=== PATIENT | male | born 1955 | race African-American/Black ===

== ENCOUNTER 2023-04-21 18:52 | Emergency (ER) | payer OTHER, SELFPAY ==
[2023-04-21 18:54] VITALS: BP 166/86
--- NOTE | 2023-04-21 19:17 | ED.GENMED ---
History of Present Illness
General
Chief Complaint: Musculo-Skeletal Complaint
Source: patient
Exam Limitations: none
Time Seen by Provider: 04/21/23 19:06
Travel History
Have you had any contact with someone who has COVID-19?: No
Do you have any symptoms of coronavirus? Fever > 100 degrees, chills, cough, shortness of breath, sore throat, loss of taste or smell, muscle aches, or headache?: No
History of Present Illness
History of Present Illness:
67-year-old male started with left scapular leg pain with radiation of tingling and numbness to the left arm 4 to 5 days ago. Essentially constant. No true chest pain or shortness of breath. No weakness. No new neurologic symptoms. Patient has
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 He has some residual double vision from this. No other symptoms related to the his presenting symptoms today.
Past History
Past History
ED Past Medical History: CVA, HTN, Hypercholesterolemia and Other (Prostate cancer, hyperlipidemia)
ED Past Surgical History: Other (Had a coiling of a aneurysm in March 2018)
Social History
Tobacco: Non-smoker
Alcohol: Occasional
Drug: None
Personal:
Living: with family
Employment: Employed
Family History
Family History: Other (Mother with a stroke brother with hypertension and kidney)
Review of Systems
Review of Systems
All Other Systems: Not applicable
Respiratory: Reports no symptoms
Cardiac: Reports no symptoms
ABD/GI: Reports no symptoms
Phy Exam
Physical Exam
Physical Exam:
GENERAL: Alert and oriented in no apparent distress. Speech normal
EYE: Orbits normal. Extraocular muscles intact. Discharge
NECK: Supple, no carotid bruit
ENT: Pharynx without erythema
CARDIAC: Regular rate and rhythm without any obvious murmurs.
LUNGS: Clear breath sounds,normal
ABDOMEN: Soft, without focal tenderness or distention
NEUROLOGICAL: Alert and oriented , speech normal. Cranial nerves II through XII intact. [id number] normal. [id number]-uw-[id number] normal. Risk Control Consultant normal. Interosseous intact. Flexion extension at the wrist normal. Biceps intact. Triceps intact.
Subjective decrease sensation to the left hand mostly second third and fourth digit more on the palmar side. No decree sensation proximal to the wrist. Good distal pulses and color
SKIN: Warm and dry, no rash or lesion, no discoloration, skin intact.
MUSCULOSKELETAL: No edema,no deformity.Good color
PSYCH: Normal and appropriate interaction.
Course
Orders/Labs/Results
Orders:
Orders
04/21/23 18:59
Electrocardiogram (*1) Urgent
Reason for Study: Other
Other Reason for Exam: left neck, left arm pain
EKG- Treatment ONCE
04/21/23 19:16
CT Cervical Spine W/o Iv Contr Urgent
Comment:
Reason For Exam: Upper back pain with radiating symptoms to the lef
CT Chest Angio W/wo Iv Contras Urgent
Comment:
Reason For Exam: Upper/mid back pain radiation to arm
IV Insert/Care/Rem.- Treatment PRN
04/21/23 19:33
Basic Metabolic Panel Urgent
Complete Blood Count/With Diff Urgent
Troponin I Urgent
Abnormal Lab Results
04/21/23
19:33
RBC 4.10 L 10^6/uL
(4.70-6.10)
Hgb 11.8 L g/dL
(13.0-18.0)
Hct 34.2 L %
(39.0-52.0)
MPV 12.0 H fL
(7.4-10.4)
Absolute Lymphs (auto) 1.0 L 10^3/uL
(1.2-3.4)
Potassium 3.3 L mmol/L
(3.5-5.1)
Carbon Dioxide 32 H mmol/L
(22-30)
Glucose 156 H mg/dl
(70-99)
04/21/23 19:33
04/21/23 19:33
Vital Signs
Initial and Last Documented VS:
Initial Vital Signs
Temp Pulse Resp BP Pulse Ox
98.3 F 76 18 166/86 97
04/21/23 18:54 04/21/23 18:54 04/21/23 18:54 04/21/23 18:54 04/21/23 18:54
Last Documented Vital Signs
Temp Pulse Resp BP Pulse Ox
98.3 F 65 15 146/85 93
04/21/23 18:54 04/21/23 21:15 04/21/23 21:15 04/21/23 21:00 04/21/23 21:15
MDM/Problems Addressed
Differential Diagnosis Includes:
Symptoms most consistent with a radiculopathy. Subjectively has sensory nerve symptoms to the left hand. However with nontraumatic scapular pain cardiac and dissection will be evaluated.
*Radiology
Radiology exam reviewed: radiology read reviewed (CT scan shows degenerative changes C5-C6. No dissection)
*Pulse Oximetry
Patient hypoxic: no
*EKG
Interpreted by ED Provider?: Yes
Interpretation: abnormal
Comparison EKG: no changes
Heart Rate: 70
Rate: normal
Rhythm: sinus
[place]: left axis deviation
Interval: normal interval
QRS Pattern: normal QRS
Ischemia: T-wave inversion (Laterally)
*Critical Care Note
Total Time (30-74mins, 75-104mins- exclusive of procedures): Not Applicable
Data Reviewed
Review of Other/Old Records Reveals: Labs, Records and Testing
Update Note
Update Note:
Patient's symptoms are consistent with a radiculopathy. Localized paresthesias to the hand. Not consistent with stroke. Not a primary cardiac issue. However patient does have a chronically abnormal EKG that does warrant cardiac follow-up.
ED Attending Note
-
Portions of this chart may have been created with voice recognition software.� Occasional wrong word or��sound alike� substitutions may have occurred due to the inherent limitations of voice recognition software.
Discharge Plan
Departure
Patient Disposition: Home (Routine Discharge)
Date of Disposition: 04/21/23
Time of Disposition: 22:26
Patient with high blood pressure during this ER visit?: Yes
Discharge Problem:
Radiculopathy left arm
Instructions: Radiculopathy (DC), BLOOD PRESSURE
Prescriptions:
No Action
febuxostat 40 MG tablet
40 mg PO DAILY 0RF
acetaminophen 325 MG tablet
650 mg PO Q6HPRN PRN (Reason: pain mild) 0RF
nifedipine 60 MG tablet extended release
60 mg PO DAILY 30 Days 0RF
losartan 100 MG tablet
100 mg PO DAILY 30 Days 0RF
atorvastatin 40 MG tablet
40 mg PO QPM 30 Days 0RF
polyethylene glycol 3350 238 GM powder
17 gm PO DAILY PRN (Reason: constipation) 30 Days 0RF
Referrals:
Giana Arguello CRNP [Family Provider] - Follow up in 2-[address] DO [Active] - Follow up in 5-7 days
Kalen Dominguez MD [Active] - Follow up in 5-7 days
Activity Restrictions/Additional Instructions:
Follow-up closely with your primary physician.
The next name is the orthopedist to follow-up with for your radiculopathy
The last name is the car rental service attendant that I think you should follow-up for your chronically abnormal EKG.
Interventions
Interventions:
*Risk Screen - Suicide Last Done: 04/21/23 18:54
*General Assessment Last Done: 04/21/23 18:54
*Neglect/Abuse Screening Last Done: 04/21/23 18:54
ED- Fall Risk Assessment Last Done: 04/21/23 20:21
ED-Musculoskeletal Assessment Last Done: 04/21/23 20:21
[2023-04-21 19:21] VITALS: BP 153/92
[2023-04-21 19:40] LABS: % Basophils 0.6 % (0-2); % Eosinophils 3.9 % (0-6); % Immature Granulocytes 0.4 % (0-0.5); % Lymphocytes 20.5 % (20.5-51.1); % Monocytes 8.5 % (1.7-9.3); % Neutrophils 66.1 % (42.2-75.2); Absolute Eosinophils 0.2 10^3/uL (0-0.7); Absolute Monocytes 0.4 10^3/uL (0.1-0.6); Absolute Neutrophils 3.2 10^3/uL (1.4-6.5); Hematocrit 34.2 % (39.0-52.0); Hemoglobin 11.8 g/dL (13.0-18.0); Mean Corp Hgb Conc. 34.5 g/dL (33.0-37.0); Mean Corpuscular Hgb 28.8 pg (27.0-31.0); Mean Corpuscular Volume 83.4 fL (80.0-94.0); Nucleated Red Blood Cells % 0 % (-); Platelet Count 130 10^3/uL (130-400); Red Cell Dist. Width 14.4 % (11.5-14.5); White Blood Cell Count 4.8 10^3/uL (4.8-10.8)
[2023-04-21 19:57] LABS: Blood Urea Nitrogen 20 mg/dl (9-20); Calcium 9.8 mg/dl (8.4-10.2); Carbon Dioxide 32 mmol/L (22-30); Chloride 101 mmol/L (98-107); Glucose 156 mg/dl (70-99); Potassium 3.3 mmol/L (3.5-5.1); Sodium 137 mmol/L (135-145); eGFR > 60.00
[2023-04-21 20:02] LABS: Troponin I < 0.012 ng/ml
[2023-04-21 20:18] VITALS: BP 139/92
[2023-04-21 21:00] VITALS: BP 146/85
== END 2023-04-21 22:36 | disposition home or self-care (01) ==
LOC: EMR 18:52
PROVIDERS: EMERGENCY PHYSICIAN Emergency Medicine; FAMILY PHYSICIAN Nurse Practitioner
DX: M54.10 Radiculopathy, site unspecified (principal); M79.602 Pain in left arm; I10 Essential (primary) hypertension; Z86.73 Personal history of transient ischemic attack (TIA), and cerebral infarction without residual deficits
CPT/HCPCS: 99285; 71275; 72125; 80048; 84484; 85025; 93005; Q9967

== ENCOUNTER → 2023-05-03 09:32 | Outpatient (REF) | payer OTHER, SELFPAY | LOC: HWRAD 09:32 | PROVIDERS: ATTENDING PHYSICIAN Nurse Practitioner | DX: Z85.46 Personal history of malignant neoplasm of prostate (principal) | CPT/HCPCS: 74177; Q9967 ==

== ENCOUNTER → 2023-05-19 07:15 | Outpatient (REF) | payer OTHER, SELFPAY | LOC: DHCBC/DCA 07:15 | PROVIDERS: ATTENDING PHYSICIAN Internal Medicine Cardiovascular Disease; FAMILY PHYSICIAN Nurse Practitioner | DX: R07.9 Chest pain, unspecified (principal); R94.31 Abnormal electrocardiogram [ECG] [EKG] | CPT/HCPCS: 78452; 93017; A9500 ==

== ENCOUNTER → 2023-07-06 09:36 | Outpatient (REF) | payer OTHER, SELFPAY | LOC: RCS 09:36 | PROVIDERS: ATTENDING PHYSICIAN Internal Medicine Cardiovascular Disease; FAMILY PHYSICIAN Nurse Practitioner | DX: R07.9 Chest pain, unspecified (principal); R94.31 Abnormal electrocardiogram [ECG] [EKG] | CPT/HCPCS: 93306 ==

== ENCOUNTER 2023-09-15 23:32 | Emergency (ER) | payer OTHER, SELFPAY ==
[2023-09-15 23:40] VITALS: BP 159/90
[2023-09-16 00:10] VITALS: BP 168/97
--- NOTE | 2023-09-16 00:10 | ED.GENMED ---
History of Present Illness
General
Chief Complaint: Headache
Source: patient
Exam Limitations: none
Time Seen by Provider: 09/15/23 23:59
Nursing documentation reviewed up to this point in time: agreed with
History of Present Illness
History of Present Illness:
Pleasant 67-year-old male presents with headache. He states that this headache began around 4 PM. He states that the headache is left-sided and now has migrated to his left ear and eye. He reports no visual acuity changes. He did take Tylenol
shortly after the headache began without any relief. Patient is concerned because he had a stroke in 2019, and this headache feels similar. Denies fever, chills, neck pain, chest pain, or shortness of breath.
Vital signs are stable. Patient not hypoxic
Nursing note reviewed. I agree with nursing documentation up to this point in time.
Home Meds and allergies reviewed.
NUMBER AND COMPLEXITY OF PROBLEMS ADDRESSED AT THE ENCOUNTER
� Chronic conditions affecting care: CVA, aneurysm, hypertension, diabetes
� Acute Exacerbation and/or Progression of Chronic Illness: Acute headache
� Differential Diagnosis includes: Headache, CVA, TIA
AMOUNT AND/OR COMPLEXITY OF DATA TO BE REVIEWED AND ANALYZED
I performed an independent evaluation of the following and my interpretation is:
EKG:
CT:
X-rays:
Ultrasound:
Laboratory Studies:
Other:
Review of other/old records:
Clinical information was obtained by an independent historian:
Prescriptions/Medications Considered but not given:
Further testing considered but not performed:
RISK OF COMPLICATIONS AND/OR MORBIDITY OR MORTALITY OF PATIENT MANAGEMENT
Social determinants of health affecting care: Good Social Support
Discussion with other providers:
Escalation of care including admission/observation vs risk of discharge considered:
CRITICAL CARE NOTE:
Total Time (exclusive of procedures):
Update:
Past History
Past History
ED Past Medical History: CVA, HTN, Hypercholesterolemia and Other (Prostate cancer, hyperlipidemia)
ED Past Surgical History: Other (Had a coiling of a aneurysm in March 2018)
Social History
Tobacco: Non-smoker
Alcohol: Occasional
Drug: None
Personal:
Living: with family
Employment: Employed
Family History
Family History: Other (Mother with a stroke brother with hypertension and kidney)
Review of Systems
Review of Systems
Allergies reviewed?: Yes
All Other Systems: ROS reviewed and negative except as documented in HPI and ROS
Constitutional: Reports no symptoms
EENT: Reports no symptoms
Respiratory: Reports no symptoms
Cardiac: Reports no symptoms
ABD/GI: Reports no symptoms
: Reports no symptoms
Musculoskeletal: Reports no symptoms
Skin: Reports no symptoms
Neurological: Reports headache; Denies dizzy, weakness or numbness
Endocrine: Reports no symptoms
Hematologic/Lymphatic: Reports no symptoms
Psychiatric: Reports anxiety
Phy Exam
General Physical Exam
General Presentation: well appearing and no apparent distress
General Skin: warm and dry
General Habitus: normal
General Mental: alert
General Hydration: appears well hydrated
ENT Exam
ENT Exam: EOMI, pharynx normal, neck supple and normocephalic
Eye Exam
Eye Exam: PERRL, cornea clear and conjunctiva normal
Cardiovascular Exam
Cardiovascular Exam: regular rate/rhythm, no edema, no murmur and normal peripheral pulses
Pulmonary Exam
Pulmonary Exam: lungs clear, no respiratory distress, no rales, no crackles, no rhonchi, no stridor, no wheezing and no cough
Gastrointestinal Exam
Gastrointestinal Exam: normal bowel sounds, non tender, soft, no organomegaly, no pulsatile mass and non distended
Neurological Exam
Neurological Exam: alert, oriented x3, no motor deficits and speech normal
Musculoskeletal Exam
Musculoskeletal Exam: full ROM and no edema
Skin Exam
Skin Exam: normal color, warm/dry, no rash and no petechia
Psychiatric Exam
Psychiatric Exam: normal mood/affect
Scores
NIH Stroke Score
Level of Consciousness: 0 - Alert
LOC Questions: 0-Answers both correctly
LOC Commands: 0-Performs both correctly
Best Horizontal Gaze: 0-Normal
Visual Moe: 0=Normal, no visual loss
Facial Palsy: 0=Normal, symmetrical
Motor - Right Arm: 0=No drift 10 seconds
Motor - Left Arm: 0=No drift 10 seconds
Motor - Right Le-No drift 5 seconds
Motor - Left Le-No drift 5 seconds
Limb Ataxia: 0-Absent
Sensation: 0-Normal
Best Language: 0-No aphasia
Dysarthria: 0-Normal
Extinction and Inattention: 0-No abnormality
Total Score:: 0
Course
Orders/Labs/Results
Orders:
Orders
09/16/23 00:10
CT Head & Neck Angio W/wo IV Urgent
Comment:
Reason For Exam: Headache similar to previous CVA symptoms
Cardiac Monitoring- Treatment ONCE
09/16/23 00:11
Electrocardiogram (*1) Stat
Reason for Study: Other
Other Reason for Exam: neuro symptoms
EKG- Treatment ONCE
09/16/23 00:13
Complete Blood Count/With Diff Urgent
Comprehensive Metabolic Panel Urgent
Erythrocyte Sed Rate Urgent
PTT Urgent
Prothrombin Time Urgent
Troponin I Urgent
09/16/23 01:54
0.9% Sodium Chloride 1000 ml [Nss] 1,000 ml IV BOLUS
Dexamethasone Sod Phosphate [Decadron] 10 mg IV NOW STA
Diphenhydramine [Benadryl] 25 mg IV NOW STA
Metoclopramide [Reglan] 10 mg IV NOW STA
09/16/23 03:14
Ketorolac [Toradol] 30 mg IV NOW STA
Abnormal Lab Results
09/16/23
00:13
WBC 4.2 L 10^3/uL
(4.8-10.8)
RBC 4.15 L 10^6/uL
(4.70-6.10)
Hgb 12.0 L g/dL
(13.0-18.0)
Hct 34.6 L %
(39.0-52.0)
Plt Count 127 L 10^3/uL
(130-400)
MPV 11.6 H fL
(7.4-10.4)
Absolute Lymphs (auto) 1.0 L 10^3/uL
(1.2-3.4)
Monocytes % 9.5 H %
(1.7-9.3)
BUN 22 H mg/dl
(9-20)
Creatinine 2.0 H mg/dL
(0.7-1.3)
Glucose 120 H mg/dl
(70-99)
09/16/23 00:13
09/16/23 00:13
Vital Signs
Initial and Last Documented VS:
Initial Vital Signs
Temp Pulse Resp BP Pulse Ox
98.1 F 66 20 159/90 95
09/15/23 23:40 09/15/23 23:40 09/15/23 23:40 09/15/23 23:40 09/15/23 23:40
Last Documented Vital Signs
Temp Pulse Resp BP Pulse Ox
98.1 F 66 20 154/90 96
09/15/23 23:40 09/15/23 23:40 09/15/23 23:40 09/16/23 02:04 09/16/23 02:15
*Critical Care Note
Total Time (30-74mins, 75-104mins- exclusive of procedures): Not Applicable
Update Note
Update Note:
Patient feeling much better. He is actively ambulating around the room getting dressed. He walks with a brisk and steady gait. He is mentating appropriately. He states that his symptoms have completely resolved and he wishes to be discharged
home. He does have a neurosurgeon at [facility]. He will follow-up. Discussed return to ER instructions with patient.
ED Attending Note
-
Portions of this chart may have been created with voice recognition software.� Occasional wrong word or��sound alike� substitutions may have occurred due to the inherent limitations of voice recognition software.
Discharge Plan
Departure
Patient Disposition: Home (Routine Discharge)
Date of Disposition: 09/16/23
Time of Disposition: 04:36
Patient with high blood pressure during this ER visit?: Yes
Condition: Good
Discharge Problem:
Headache, HTN (hypertension)
Instructions: Headache, Adult (DC), BLOOD PRESSURE
Prescriptions:
No Action
febuxostat 40 MG tablet
40 mg PO DAILY 0RF
acetaminophen 325 MG tablet
650 mg PO Q6HPRN PRN (Reason: pain mild) 0RF
nifedipine 60 MG tablet extended release
60 mg PO DAILY 30 Days 0RF
losartan 100 MG tablet
100 mg PO DAILY 30 Days 0RF
atorvastatin 40 MG tablet
40 mg PO QPM 30 Days 0RF
polyethylene glycol 3350 238 GM powder
17 gm PO DAILY PRN (Reason: constipation) 30 Days 0RF
Referrals:
Giana Arguello CRNP [Family Provider] -
Activity Restrictions/Additional Instructions:
As discussed, please follow-up with your neurologist at [facility].
It was a pleasure meeting you and taking part in your care. We hope for your continued healing and wellness.
Please read discharge instructions in their entirety. However, they are for general education and may not describe your exact diagnosis at discharge. Information on your ER visit and medical conditions were discussed with you along with appropriate
follow up information...
If indicated, please take your medications as instructed and indicated on discharge paperwork.
Please schedule a follow up appointment as directed. Call to schedule an appointment
Please return to the emergency department with ANY change in, persisting, or worsening of symptoms. If any of your symptoms do not improve, or persist, or become more severe within 6-12 hours, please return to the emergency department for further
care.
Please return to the emergency department if you develop a headache, neck pain/stiffness, fever greater than 100.4F, chest pain, shortness of breath, persistent nausea, vomiting, slurred speech, difficulty walking, numbness/tingling, weakness, signs
of infection or any other symptoms that are worrisome to you.
If you have any questions or concerns please do not hesitate to call the Hospital at or E-mail me directly at [email or web address]
Interventions
Interventions:
*Risk Screen - Suicide Last Done: 09/15/23 23:40
*General Assessment Last Done: 09/15/23 23:40
*Neglect/Abuse Screening Last Done: 09/15/23 23:40
ED- Fall Risk Assessment Last Done: 09/15/23 23:40
*ED COVID-19 Vaccine History Last Done: 09/15/23 23:40
ED- Neurological Assessment Last Done: 09/16/23 00:11
Discharge Date and Time
Print Language: ALBANIAN
[2023-09-16 00:11] VITALS: BMI 36.2
--- NOTE | 2023-09-16 00:12 | EDRN ---
Dr. Stack at bedside, patient states this feels like stroke he had in the past, [facility] performed with a result of 0
[2023-09-16 00:33] LABS: INR 1.11; PT 14.3 Sec (11.4-14.6)
[2023-09-16 00:34] LABS: APTT 29.5 Sec (23.4-35.0)
[2023-09-16 00:36] LABS: ALT (SGPT) 49 U/L (0-50); AST (SGOT) 24 U/L (17-59); Albumin 4.1 g/dl (3.5-5.0); Alkaline Phosphatase 77 U/L (38-126); Blood Urea Nitrogen 22 mg/dl (9-20); Calcium 9.6 mg/dl (8.4-10.2); Carbon Dioxide 28 mmol/L (22-30); Chloride 105 mmol/L (98-107); Estimated Creatinine Clearance 49 ml/min; Glucose 120 mg/dl (70-99); Potassium 3.9 mmol/L (3.5-5.1); Sodium 138 mmol/L (135-145); Total Bilirubin 0.5 mg/dl (0.2-1.3); Total Protein 6.6 g/dl (6.3-8.2); eGFR 36.13
[2023-09-16 00:40] LABS: % Basophils 0.5 % (0-2); % Eosinophils 4.5 % (0-6); % Immature Granulocytes 0.2 % (0-0.5); % Lymphocytes 23.5 % (20.5-51.1); % Monocytes 9.5 % (1.7-9.3); % Neutrophils 61.8 % (42.2-75.2); Absolute Eosinophils 0.2 10^3/uL (0-0.7); Absolute Monocytes 0.4 10^3/uL (0.1-0.6); Absolute Neutrophils 2.6 10^3/uL (1.4-6.5); Hematocrit 34.6 % (39.0-52.0); Mean Corp Hgb Conc. 34.7 g/dL (33.0-37.0); Mean Corpuscular Hgb 28.9 pg (27.0-31.0); Mean Corpuscular Volume 83.4 fL (80.0-94.0); Mean Platelet Volume 11.6 fL (7.4-10.4); Nucleated Red Blood Cells % 0 % (-); Platelet Count 127 10^3/uL (130-400); Red Blood Cell Count 4.15 10^6/uL (4.70-6.10); Red Cell Dist. Width 13.6 % (11.5-14.5); White Blood Cell Count 4.2 10^3/uL (4.8-10.8)
[2023-09-16 00:47] LABS: Troponin I < 0.012 ng/ml
[2023-09-16 01:00] VITALS: BP 162/87
[2023-09-16 01:10] LABS: Erythrocyte Sed Rate 16 mm/hour (0-20)
[2023-09-16] MEDS: REGLAN 10 MG IV (01:58)
[2023-09-16] MEDS: BENADRYL 25 MG IV (01:58)
[2023-09-16] MEDS: NSS 1000 IV (01:58)
[2023-09-16] MEDS: DECADRON 10 MG IV (01:58)
[2023-09-16 02:04] VITALS: BP 154/90
[2023-09-16] MEDS: TORADOL 30 MG IV (03:21)
[2023-09-16 04:00] VITALS: BP 169/101
--- NOTE | 2023-09-16 04:30 | EDRN ---
Patient reported feeling better and ready to go home, Dr. Stack in to speak with patient and he will be discharged home.
== END 2023-09-16 04:49 | disposition home or self-care (01) ==
LOC: EMR 23:32
PROVIDERS: EMERGENCY PHYSICIAN Student in an Organized Health Care Education/Training Program; FAMILY PHYSICIAN Nurse Practitioner
DX: R51.9 Headache, unspecified (principal); I10 Essential (primary) hypertension
CPT/HCPCS: 99285; 96374; 96375 ×3; 96361; 70496; 70498; 80053; 84484; 85025; 85610; 85652; 85730; 93005; Q9967

== ENCOUNTER 2024-01-27 14:49 | Emergency (ER) | payer OTHER, SELFPAY ==
[2024-01-27 14:54] VITALS: BP 187/110
--- NOTE | 2024-01-27 15:42 | ED.GENMED ---
History of Present Illness
General
Chief Complaint: Headache
Source: patient
Exam Limitations: none
Time Seen by Provider: 01/27/24 15:22
Nursing documentation reviewed up to this point in time: agreed with
History of Present Illness
History of Present Illness:
68-year-old male with past medical history of stroke, aneurysm hypertension diabetes presents to the ER for evaluation. Patient reports he has had a headache off and on for the past 2 weeks and today woke up and had a severe headache. He did take
his blood pressure today and realized it was elevated 196/100 which was prompted him to come to the ER. He has been taking his blood pressure medication normally as scheduled in the morning. He denies any blurred vision nausea vomiting. He denies
any chest pain shortness of breath. He did take 3 Tylenol which did not relieve his symptoms he did drive himself to the ER.
He is on Eliquis for history of stroke denies any trauma. He has been only taking Eliquis once a day and was not aware he was supposed to take it twice a day. He found that out this today when his cardiology office told him.
Past History
Past History
ED Past Medical History: CVA, HTN, Hypercholesterolemia and Other (Prostate cancer, hyperlipidemia)
ED Past Surgical History: Other (Had a coiling of a aneurysm in March 2018)
Social History
Tobacco: Non-smoker
Alcohol: Occasional
Drug: None
Personal:
Living: with family
Employment: Employed
Family History
Family History: Other (Mother with a stroke brother with hypertension and kidney)
Review of Systems
Review of Systems
Allergies reviewed?: Yes
All Other Systems: ROS reviewed and negative except as documented in HPI and ROS
Constitutional: Reports no symptoms
EENT: Reports other (No visual changes)
Respiratory: Reports no symptoms; Denies trouble breathing
Cardiac: Reports no symptoms; Denies chest pain
ABD/GI: Reports no symptoms
Skin: Reports no symptoms
Neurological: Reports headache; Denies dizzy, weakness or numbness
Psychiatric: Reports no symptoms
Phy Exam
General Physical Exam
General Presentation: no apparent distress
General age: appears stated age
General Skin: warm and dry
General Habitus: normal
General Mental: alert
General Hydration: appears well hydrated
Eye Exam
Eye Exam: PERRL and EOMI
Eye Exam General: PERRL: bilateral and EOM intact: bilateral
Pupil Exam: Bilateral: round and reactive
Cardiovascular Exam
Cardiovascular Exam: normal peripheral pulses and bradycardia
Pulmonary Exam
Pulmonary Exam: lungs clear and no respiratory distress
Neurological Exam
Neurological Exam: alert and oriented x3
Fred[place]ick Coma Scale
Eye Opening: Spontaneous
Verbal Response: Oriented
Motor Response: Obeys Commands
GCS Total Score: 15
Musculoskeletal Exam
Musculoskeletal Exam: full ROM
Skin Exam
Skin Exam: normal color and warm/dry
Psychiatric Exam
Psychiatric Exam: normal mood/affect
Course
Orders/Labs/Results
Orders:
Orders
01/27/24 14:57
EKG [Electrocardiogram (*1)] Urgent
Reason for Study: Vertigo / Dizzy
EKG- Treatment ONCE
01/27/24 15:52
CT Head W/o Iv Contrast Urgent
Comment:
Reason For Exam: headache elevated bp
Cardiac Monitoring- Treatment ONCE
IV Insert/Care/Rem.- Treatment PRN
01/27/24 15:53
Electrocardiogram (*1) Stat
Reason for Study: Abdominal Pain
EKG- Treatment ONCE
01/27/24 16:14
Complete Blood Count/With Diff Urgent
Comprehensive Metabolic Panel Urgent
01/27/24 17:36
0.9% Sodium Chloride 1000 ml [Nss] 1,000 ml IV BOLUS
Prochlorperazine [Compazine] 10 mg IV NOW STA
01/27/24 18:19
Ketorolac [Toradol] 15 mg IV NOW STA
01/27/24 19:06
Ketorolac [Toradol] 15 mg .ROUTE .STK-MED ONE
Abnormal Lab Results
01/27/24
16:14
WBC 4.5 L 10^3/uL
(4.8-10.8)
RBC 4.43 L 10^6/uL
(4.70-6.10)
Hgb 12.7 L g/dL
(13.0-18.0)
Hct 38.4 L %
(39.0-52.0)
Plt Count 119 L 10^3/uL
(130-400)
MPV 11.8 H fL
(7.4-10.4)
Absolute Lymphs (auto) 1.1 L 10^3/uL
(1.2-3.4)
Glucose 104 H mg/dl
(70-99)
01/27/24 16:14
01/27/24 16:14
Vital Signs
Initial and Last Documented VS:
Initial Vital Signs
Temp Pulse Resp BP Pulse Ox
97.9 F 56 16 187/110 98
01/27/24 14:54 01/27/24 14:54 01/27/24 14:54 01/27/24 14:54 01/27/24 14:54
Last Documented Vital Signs
Temp Pulse Resp BP Pulse Ox
97.9 F 57 16 175/111 98
01/27/24 14:54 01/27/24 18:17 01/27/24 18:17 01/27/24 18:17 01/27/24 18:17
Balloon Tester consulted with Physician
Balloon Tester consulted with physician?: Yes
Name of Physician Consulted: Aure
MDM/Problems Addressed
Differential Diagnosis Includes:
Not limited to headache, less likely intracranial hemorrhage, hypertension
MDM/Problems Addressed:
Patient is a 68-year-old male who presented with intermittent headaches for the past 2 weeks worse today. He also realized his blood pressure was high. He does have a history of hypertension and is followed by cardiology here Dr. Cruz. His
medication includes diltiazem spironolactone and losartan for blood pressure management. He has taken this normally. He also takes Eliquis who presents awake alert no acute distress no chest pain no shortness of breath no visual changes. His
heart rate normally runs in the 50s and then has been in the 50s here he has been hypertensive however he does have a mild headache and was treated which improved with Compazine fluids and Toradol. Labs are unremarkable including normal renal
function, negative CT head no concerning findings or changes on patient's EKG.
Case reviewed with ED physician stable discharge home with outpatient follow-up cardiology.
*Radiology
Radiology exam reviewed: radiology read reviewed
*Pulse Oximetry
Patient hypoxic: no
*EKG
Interpreted by ED Provider?: Yes
Heart Rate: 51
Rate: bradycardiac
Rhythm: sinus
Ischemia: non-specific ST changes
*Critical Care Note
Total Time (30-74mins, 75-104mins- exclusive of procedures): Not Applicable
ED Attending Note
-
Portions of this chart may have been created with voice recognition software.� Occasional wrong word or��sound alike� substitutions may have occurred due to the inherent limitations of voice recognition software.
Discharge Plan
Departure
Patient Disposition: Home (Routine Discharge)
Date of Disposition: 01/27/24
Time of Disposition: 19:37
Patient with high blood pressure during this ER visit?: Yes
Condition: Fair
Covid-19: Not Applicable
Discharge Problem:
Headache, ELEVATED BLOOD PRESSURE
Instructions: Headache, Adult (DC), BLOOD PRESSURE
Prescriptions:
No Action
febuxostat 40 MG tablet
40 mg PO DAILY 0RF
acetaminophen 325 MG tablet
650 mg PO Q6HPRN PRN (Reason: pain mild) 0RF
nifedipine 60 MG tablet extended release
60 mg PO DAILY 30 Days 0RF
losartan 100 MG tablet
100 mg PO DAILY 30 Days 0RF
atorvastatin 40 MG tablet
40 mg PO QPM 30 Days 0RF
polyethylene glycol 3350 238 GM powder
17 gm PO DAILY PRN (Reason: constipation) 30 Days 0RF
Referrals:
Sacha Melo MD [Active] -
UNKNOWN - PT DOES,NOT KNOW [Unknown Provider] -
Activity Restrictions/Additional Instructions:
As discussed your CAT scan was unremarkable.
Your labs unremarkable. Your blood pressure was elevated here in the ER. Please continue to take your medicine as previously prescribed and follow-up with your lime burner for further evaluation and blood pressure control. Please call your
lime burner Tuesday morning return if any worsening of symptoms
Interventions
Interventions:
*Risk Screen - Suicide Last Done: 01/27/24 14:54
*General Assessment Last Done: 01/27/24 14:54
*Neglect/Abuse Screening Last Done: 01/27/24 14:54
ED- Fall Risk Assessment Last Done: 01/27/24 16:06
*ED COVID-19 Vaccine History Last Done: 01/27/24 16:06
ED- Neurological Assessment Last Done: 01/27/24 16:06
Discharge Date and Time
Print Language: HAITIAN
[2024-01-27 16:06] VITALS: BMI 35.2
[2024-01-27 16:36] LABS: % Basophils 0.7 % (0-2); % Eosinophils 3.6 % (0-6); % Immature Granulocytes 0.4 % (0-0.5); % Lymphocytes 23.8 % (20.5-51.1); % Monocytes 7.8 % (1.7-9.3); % Neutrophils 63.7 % (42.2-75.2); Absolute Eosinophils 0.2 10^3/uL (0-0.7); Absolute Lymphocytes 1.1 10^3/uL (1.2-3.4); Absolute Monocytes 0.4 10^3/uL (0.1-0.6); Absolute Neutrophils 2.9 10^3/uL (1.4-6.5); Hematocrit 38.4 % (39.0-52.0); Hemoglobin 12.7 g/dL (13.0-18.0); Mean Corp Hgb Conc. 33.1 g/dL (33.0-37.0); Mean Corpuscular Hgb 28.7 pg (27.0-31.0); Mean Corpuscular Volume 86.7 fL (80.0-94.0); Mean Platelet Volume 11.8 fL (7.4-10.4); Nucleated Red Blood Cells % 0 % (-); Platelet Count 119 10^3/uL (130-400); Red Blood Cell Count 4.43 10^6/uL (4.70-6.10); Red Cell Dist. Width 13.6 % (11.5-14.5); White Blood Cell Count 4.5 10^3/uL (4.8-10.8)
[2024-01-27 16:42] LABS: ALT (SGPT) 50 U/L (0-50); AST (SGOT) 27 U/L (17-59); Albumin 4.4 g/dl (3.5-5.0); Alkaline Phosphatase 80 U/L (38-126); Blood Urea Nitrogen 17 mg/dl (9-20); Calcium 9.9 mg/dl (8.4-10.2); Carbon Dioxide 28 mmol/L (22-30); Chloride 104 mmol/L (98-107); Estimated Creatinine Clearance 86 ml/min; Glucose 104 mg/dl (70-99); Potassium 4.2 mmol/L (3.5-5.1); Sodium 143 mmol/L (135-145); Total Bilirubin 0.4 mg/dl (0.2-1.3); Total Protein 7.2 g/dl (6.3-8.2); eGFR > 60.00
[2024-01-27] MEDS: NSS 1000 IV (17:41)
[2024-01-27] MEDS: COMPAZINE 10 MG IV (17:41)
[2024-01-27 18:11] VITALS: BP 161/121
[2024-01-27 18:17] VITALS: BP 175/111
[2024-01-27] MEDS: TORADOL 15 MG IV (19:07)
[2024-01-27 19:41] VITALS: BP 184/104
== END 2024-01-27 19:47 | disposition home or self-care (01) ==
LOC: EMR 14:49
PROVIDERS: Nurse Practitioner; EMERGENCY PHYSICIAN Emergency Medicine; FAMILY PHYSICIAN Family Medicine
DX: R51.9 Headache, unspecified (principal); I10 Essential (primary) hypertension; E78.00 Pure hypercholesterolemia, unspecified; Z79.01 Long term (current) use of anticoagulants; Z82.3 Family history of stroke; Z82.49 Family history of ischemic heart disease and other diseases of the circulatory system; Z85.46 Personal history of malignant neoplasm of prostate; Z86.73 Personal history of transient ischemic attack (TIA), and cerebral infarction without residual deficits
CPT/HCPCS: 99284; 70450; 80053; 85025; 93005

== ENCOUNTER → 2025-02-19 14:39 | Outpatient (REF) | payer OTHER, SELFPAY | LOC: HWRAD 14:39 | PROVIDERS: ATTENDING PHYSICIAN Internal Medicine Nephrology; FAMILY PHYSICIAN Nurse Practitioner | DX: N17.9 Acute kidney failure, unspecified (principal) | CPT/HCPCS: 76770 ==